=== PATIENT | male | born 1970 | race Caucasian/White ===

== ENCOUNTER 2017-10-28 15:52 | Emergency (ER) | payer BC ==
[~2017-10-28] VITALS: Ht 167.6 cm; Wt 102.1 kg
[2017-10-28 16:01] VITALS: BP 158/91; PULSE 89; RESP 16; TEMP 99.6; O2SAT 97
[2017-10-28] MEDS ORDERED: TICA1TAB PO (16:21)
[2017-10-28] MEDS ORDERED: TAMS5CAP PO (16:21)
[2017-10-28] MEDS ORDERED: METO25TA3 PO (16:21)
[2017-10-28] MEDS ORDERED: COLC1CAP3 PO (16:21)
[2017-10-28] MEDS ORDERED: ATOR20TA15 PO (16:21)
[2017-10-28] MEDS ORDERED: AMLO5TAB2 PO (16:21)
[2017-10-28] MEDS ORDERED: SODIUM CHLOR 0.9% 1000 ML INJ 1,000 ML IV ONE (16:30)
[2017-10-28] MEDS ORDERED: ONDANSETRON HCL 4 MG/2 ML VIAL IV PUSH ONE (16:30)
[2017-10-28] MEDS ORDERED: MORPHINE SULFATE 2 MG/ML INJ IV PUSH ONE (16:30)
[2017-10-28] MEDS ORDERED: KETOROLAC TROMETHAMINE 30 MG/ML (IVP) VIAL IV PUSH ONE (16:30)
--- NOTE | 2017-10-28 16:49 | PD ---
HPI Chief Complaint: Flank/Kidney Pain Time Seen by Provider: 16:14 Travel History International Travel<30 days: No Contact w/Intl Traveler<30days: No Traveled to known affect area: No History of Present Illness HPI This is a 47-year-old male who was diagnosed with a "small" kidney stone 2 days ago at a hospital in [place]. He's been having 3 days of right sided flank pain , intermittent, sharp, stabbing, with no associated vomiting, fevers or chills. He's never been diagnosed with kidney stones before. He took Dumas last at 2 PM and took Flomax at noon but he says his pain today was out of control and he is up to a 7 out of 10 so he came to the emergency department. He has a follow- up appointment with urology on Monday. PFSH Past Medical History Hx Anticoagulant Therapy: Yes Cardiovascular Problems: Yes (angioplasty, MS, HTN on meds) High Cholesterol: Yes Coronary Artery Disease: Yes Gout: Yes Hypertension: Yes Myocardial Infarction: Yes Tetanus Vaccination: > 5 Years Influenza Vaccination: No Past Surgical History Other Surgery: Yes (ANGIOPLASTY) Social History Alcohol Use: No Tobacco Use: No Allergies-Medications (Allergen,Severity, Reaction): Coded Allergies: No Known Allergies (Unverified , 10/28/17) Reported Meds & Prescriptions Reported Meds & Active Scripts Active Reported Brilinta (Ticagrelor) 60 Mg Tab 60 Mg PO BID Flomax (Tamsulosin HCl) 0.4 Mg Cap 0.4 Mg PO HS Colchicine 0.6 Mg Cap 0.6 Mg PO DAILY Metoprolol Tartrate 25 Mg Tab 25 Mg PO BID Atorvastatin (Atorvastatin Calcium) 20 Mg Tab 20 Mg PO HS Amlodipine (Amlodipine Besylate) 5 Mg Tab 5 Mg PO DAILY Review of Systems Except as stated in HPI: all other systems reviewed are Neg Physical Exam Narrative GENERAL:Well appearing, no acute distress SKIN: Focused skin assessment warm and dry. HEAD: Atraumatic. Normocephalic. EYES: Pupils equal and round. No injection or drainage. ENT: Moist mucous membranes NECK: Trachea midline. CARDIOVASCULAR: Regular rate and rhythm. No murmur appreciated. RESPIRATORY: Clear to auscultation. Breath sounds equal bilaterally. GASTROINTESTINAL: Abdomen soft, tender to palpation in the right upper quadrant with no rebound or guarding. : Right CVA tenderness. MUSCULOSKELETAL: No obvious deformities. NEUROLOGICAL: Awake and alert. No obvious cranial nerve deficits. Moving all extremities. PSYCHIATRIC: Appropriate mood and affect; insight and judgment normal. Data Data Last Documented VS Vital Signs Date Time Temp Pulse Resp B/P (MAP) Pulse Ox O2 Delivery O2 Flow Rate FiO2 10/28/17 16:01 99.6 89 16 158/91 (113) 97 Orders Orders Ketorolac Inj (Toradol Inj) (10/28/17 16:30) Ondansetron Inj (Zofran Inj) (10/28/17 16:30) Sodium Chlor 0.9% 1000 Ml Inj (Ns 1000 M (10/28/17 16:30) Morphine Inj (Morphine Inj) (10/28/17 16:30) MDM Medical Decision Making Medical Screen Exam Complete: Yes Emergency Medical Condition: Yes Interpretation(s) Temperature is 99.6, hypertensive Differential Diagnosis Nephrolithiasis Narrative Course This is a 47-year-old male who has a known kidney stone on the right side who presents to the emergency department with worsening pain. An IV was established and the patient was given Toradol, IV fluids and Zofran. He feels much better and would like to go home. He'll be discharged on an anti- inflammatory in conjunction with his Dumas. Diagnosis Primary Impression: Nephrolithiasis Patient Instructions: General Instructions Additional Instructions: If you develop severe pain, inability to eat or drink, or fever return to the emergency department. Use a strainer to try to catch your stone. Take naproxen and Dumas as needed for pain, and continue taking zofran as needed for nausea. Complete your course of tamsulosin. Follow up with urology as soon as possible. Med/Other Pt SpecificInfo: Prescription(s) given Scripts Naproxen (Naproxen) 500 Mg Tab 500 MG PO BID Y for PAIN SCALE 4 TO 10, #14 TAB 0 Refills Prov: Haleigh Wang MD 10/28/17 Disposition: 01 DISCHARGE HOME Condition: Stable Haleigh Wang MD Oct 28, 2017 16:49
[2017-10-28 17:25] VITALS: BP 142/86; PULSE 82; RESP 16; O2SAT 98
[2017-10-28] MEDS ORDERED: NAPR500T2 PO (17:26)
[2017-10-28 17:40] VITALS: RESP 18
[2017-10-28 17:41] VITALS: BP 142/74
== END 2017-10-28 17:50 | disposition home or self-care (01) ==
LOC: PHED 15:52
DX: N20.0 Calculus of kidney (principal); I10 Essential (primary) hypertension; E78.00 Pure hypercholesterolemia, unspecified; I25.10 Atherosclerotic heart disease of native coronary artery without angina pectoris; M10.9 Gout, unspecified; I25.2 Old myocardial infarction
CPT/HCPCS: 96361; 96374; 96375; 99283; J1885; J2270; J2405; J7030